=== PATIENT | male | born 1985 | race Hispanic/Latino ===

== ENCOUNTER 2021-11-17 20:36 | Emergency (ER) | payer MEDICAID, SELFPAY ==
[2021-11-17 20:37] VITALS: BP 132/110; PULSE 77; RESP 16; TEMP 36.5; O2SAT 99; BMI 26.2
--- NOTE | 2021-11-17 21:44 | RAD_ITS ---
HISTORY: injury -- thumb EXAMINATION/TECHNIQUE: XR Fingers Min 2 Views: 3 views right thumb COMPARISON: None FINDINGS: SOFT TISSUES: No significant soft tissue swelling. No radiopaque foreign body identified. BONES/JOINTS: No acute fracture or subluxation. Normal alignment. Preservation of the joint spaces. Small accessory ossicle/sesamoid bones noted. RAD/Finger(s) Min 2 Views IMPRESSION: Negative right thumb. at 2223 Reported and signed by: Jamie Delgado MD Electronically Signed: Jamie Delgado MD at 22:22 EDT ,
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
[2021-11-18 00:20] VITALS: BP 144/67; PULSE 84; RESP 17; TEMP 36.4; O2SAT 98
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
== END 2021-11-18 00:20 | disposition home or self-care (01) ==
PROVIDERS: Emergency Provider Emergency Medicine; Visit Provider Emergency Medicine
DX: S02.2XXA Fracture of nasal bones, initial encounter for closed fracture (principal); S02.831A Fracture of medial orbital wall, right side, initial encounter for closed fracture; Y92.410 Unspecified street and highway as the place of occurrence of the external cause; Y04.8XXA Assault by other bodily force, initial encounter; R51.9 Headache, unspecified; S60.222A Contusion of left hand, initial encounter; S60.011A Contusion of right thumb without damage to nail, initial encounter
CPT/HCPCS: 70450; 70486; 73140; 99283